=== PATIENT | male | born 1970 | race Caucasian/White ===

== ENCOUNTER 2017-04-17 19:46 | Emergency (ER) | payer BC ==
[2017-04-17 19:53] VITALS: BP 136/89; PULSE 79; TEMP 97.8; O2SAT 94
[2017-04-17] MEDS ORDERED: Lidocaine 1% Inj (20ml) ONE (20:50)
[2017-04-17] MEDS ORDERED: Bacitracin 500 Units/gm Oint Foilpak UD ONE (20:56)
[2017-04-17] MEDS ORDERED: Tetanus/Diphtheria Toxoids 0.5 ml Syringe IM ONE ×2 (20:58→21:04)
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
[2017-04-17 21:36] VITALS: RESP 20
== END 2017-04-17 21:35 | disposition home or self-care (01) ==
LOC: C.ER 19:46
DX: S61.412A Laceration without foreign body of left hand, initial encounter (principal); W26.0XXA Contact with knife, initial encounter; Y92.9 Unspecified place or not applicable; Z23 Encounter for immunization

== ENCOUNTER 2017-04-29 17:29 | Emergency (ER) | payer BC ==
[2017-04-29 18:20] VITALS: BP 127/81; PULSE 75; RESP 16; TEMP 97.8; O2SAT 96
--- NOTE | 2017-04-29 18:28 | C.PDOC ---
<Rita Morelos - Last Filed: 04/29/17 18:26> <Mago Georges - Last Filed: 04/29/17 18:35> Time Seen by Provider: 04/29/17 18:26 Chief Complaint (Nursing): Suture/Staple Removal Past Medical History - Medical History PMH: Depression, Gastrointestinal Ulcer, HTN Denies: Anxiety, Bipolar Disorder, Diabetes, Hepatitis, HIV, Personality Disorder, Schizophrenia, Seizures, Sexually Transmitted Disease Surgical History: Appendectomy, Endoscopy Family History: States: Unknown Family Hx - Social History Hx Tobacco Use: Yes Hx Alcohol Use: No Hx Substance Use: No - Immunization History Hx Tetanus Toxoid Vaccination: Yes Hx Influenza Vaccination: No Hx Pneumococcal Vaccination: No <Rita Morelos - Last Filed: 04/29/17 18:26> Vital Signs: Last Vital Signs Temp 97.8 F 04/29/17 18:16 Pulse 75 04/29/17 18:16 Resp 16 04/29/17 18:16 BP 127/81 04/29/17 18:16 Pulse Ox 96 04/29/17 18:28 - [email or web address] Procedures ANESTH INJEC PERIPH NERV (10/13/12) CRUCIATE LIG REPAIR NEC (10/13/12) OTHER REPAIR OF KNEE (10/13/12) ED Course And Treatment O2 Sat by Pulse Oximetry: 96 <Rita Morelos - Last Filed: 04/29/17 18:26> Disposition <Rita Morelos - Last Filed: 04/29/17 18:26> Counseled Patient/Family Regarding: Diagnosis - Disposition Disposition Time: 18:35 - POA Present On Arrival: None <Mago Georges - Last Filed: 04/29/17 18:35> - Disposition Disposition: HOME/ ROUTINE Condition: STABLE Instructions: Stitches Removal Forms: [facility] (Sami), General Discharge Instructions - Clinical Impression Clinical Impression: Removal of suture
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
== END 2017-04-29 18:41 | disposition home or self-care (01) ==
LOC: C.ER 17:29
DX: Z48.02 Encounter for removal of sutures (principal); I10 Essential (primary) hypertension; Z72.0 Tobacco use

== ENCOUNTER 2018-04-04 11:25 | Emergency (ER) | payer BC ==
[2018-04-04 11:36] VITALS: RESP 20; TEMP 98.1
--- NOTE | 2018-04-04 12:11 | C.PDOC ---
History Of Present Illness 48 year old male presents to ED with complaints of left knee pain s/p fall 2 days ago. Patient figured the pain would go away, but its still bothering him so he came here to ER. Denies LOC, weakness, numbness, tingling, or other injuries. Patient has no other complaints at this time. Time Seen by Provider: 04/04/18 11:31 Chief Complaint (Nursing): Lower Extremity Problem/Injury History Per: Patient History/Exam Limitations: no limitations Onset/Duration Of Symptoms: Days Current Symptoms Are (Timing): Still Present Past Medical History Reviewed: Historical Data, Nursing Documentation, Vital Signs Vital Signs: Last Vital Signs Temp 98.1 F 04/04/18 11:32 Pulse 90 04/04/18 11:32 Resp 20 04/04/18 11:32 BP 143/98 H 04/04/18 11:32 Pulse Ox 96 04/04/18 11:32 - Medical History PMH: Depression, Gastrointestinal Ulcer, HTN Denies: Anxiety, Bipolar Disorder, Diabetes, Hepatitis, HIV, Personality Disorder, Schizophrenia, Seizures, Sexually Transmitted Disease Surgical History: Appendectomy, Endoscopy - [facility] Procedures ANESTH INJEC PERIPH NERV (10/13/12) CRUCIATE LIG REPAIR NEC (10/13/12) OTHER REPAIR OF KNEE (10/13/12) Family History: States: No Known Family Hx - Social History Hx Tobacco Use: Yes Hx Alcohol Use: No Hx Substance Use: No - Immunization History Hx Tetanus Toxoid Vaccination: Yes Hx Influenza Vaccination: No Hx Pneumococcal Vaccination: No Review Of Systems Except As Marked, All Systems Reviewed And Found Negative. Constitutional: Negative for: Fever, Chills Cardiovascular: Negative for: Chest Pain Respiratory: Negative for: Cough, Shortness of Breath Gastrointestinal: Negative for: Nausea, Vomiting Musculoskeletal: Positive for: Other (Left Knee Pain). Negative for: Neck Pain Neurological: Negative for: Weakness, Numbness, Other (LOC) Physical Exam - Physical Exam Appears: Non-toxic, No Acute Distress Skin: Warm, Dry Head: Atraumatic, Normacephalic Eye(s): bilateral: Normal Inspection Oral Mucosa: Moist Neck: Supple Cardiovascular: Rhythm Regular, No Murmur Respiratory: Normal Breath Sounds, No Rales, No Rhonchi, No Wheezing Gastrointestinal/Abdominal: Soft, No Tenderness Extremity: Tenderness (to lateral aspect of left knee, no swelling or warmth), No Pedal Edema, No Deformity Extremity: Bilateral: Normal Color And Temperature, Normal ROM Neurological/Psych: Oriented x3, Normal Speech ED Course And Treatment O2 Sat by Pulse Oximetry: 96 (RA) Pulse Ox Interpretation: Normal Medical Decision Making Medical Decision Making: Plan: --Left Knee XR --Ibuprofen PO --Tylenol PO Knee XR unremarkable. Jean wrap placed on left knee. Disposition Counseled Patient/Family Regarding: Studies Performed, Diagnosis, Need For Fol lowup, Rx Given - Disposition Referrals: [facility] [Outside] Disposition: HOME/ ROUTINE Disposition Time: 12:10 Condition: STABLE Prescriptions: Ibuprofen [Motrin] 600 mg PO TID #15 tab Instructions: Knee Pain (DC) Forms: General Discharge Instructions, [facility] (Bulgarian), Work Excuse - POA Present On Arrival: None - Clinical Impression Clinical Impression: Joint pain - Scribe Statement The provider has reviewed the documentation as recorded by the Laciibzhou Amaya Provider Attestation: All medical record entries made by the Laciibzhou were at my direction and personally dictated by me. I have reviewed the chart and agree that the record accurately reflects my personal performance of the history, physical exam, medical decision making, and the department course for this patient. I have also personally directed, reviewed, and agree with the discharge instructions and disposition.
[2018-04-04 12:22] VITALS: BP 137/82; PULSE 91
[2018-04-04 12:38] VITALS: O2SAT 96
--- NOTE | 2018-04-04 14:30 | RAD ---
Date of service: 04/04/2018 PROCEDURE: Left Knee Radiographs. HISTORY: Pain. COMPARISON: None. FINDINGS: BONES: No acute fracture or destructive bony lesion identified. JOINTS: Tricompartment joint space narrowing is appreciated as well as limited medial patellofemoral osteophytes compatible with degenerative joint disease. JOINT EFFUSION: Mild suprasellar bursa effusion identified. OTHER FINDINGS: None. IMPRESSION: No acute fracture dislocation muscular bursa effusion identified. Osteoarthritis.
== END 2018-04-04 12:22 | disposition home or self-care (01) ==
LOC: C.ER 11:25
DX: M25.562 Pain in left knee (principal)